=== PATIENT | male | born 1955 | race Caucasian/White ===

== ENCOUNTER → 2020-03-04 08:31 | Outpatient (CLI) | payer OTHER, SELFPAY ==
--- NOTE | ~2020-03-04 | CT_ITS ---
EXAMINATION: CT pelvis wo con DATE: 03/04/2020 08:47 INDICATION: Left groin pain, history of bilateral laparoscopic inguinal hernia repair on 11/14/2018 TECHNIQUE: Computed tomography (CT) of the pelvis was performed without intravenous contrast. The dos e-length product (DLP) was 540.95 mGy-cm. Automated exposure control and iterative reconstruction claire hnique were employed. COMPARISON: 04/05/2016 FINDINGS: Changes of interval hernia repair are noted. Per the operative note, patient had right dire ct and indirect inguinal hernias and a direct left inguinal hernia. There is an indirect left inguina l hernia containing fat. There are no dilated loops of bowel. A moderate volume of pelvic stool is pr esent. There are no pathologically enlarged pelvic lymph nodes. Prostatic calcifications are noted. T here is mild lower lumbar spondylosis. IMPRESSION: 1. Indirect left inguinal hernia containing fat. Interval repair of the previously described inguinal hernias. Reviewed, dictated and finalized at location B. IMPRESSION: 1. Indirect left inguinal hernia containing fat. Interval repair of the previou sly described inguinal hernias.
== END ==
PROVIDERS: Visit Provider Surgery
DX: K40.90 Unilateral inguinal hernia, without obstruction or gangrene, not specified as recurrent (principal)
CPT/HCPCS: 72192

== ENCOUNTER 2020-04-22 14:18 | Outpatient (CLI) | payer OTHER, SELFPAY | END 2020-04-22 14:19 | disposition home or self-care (01) | LOC: ANHSURGERY 14:20 | PROVIDERS: Visit Provider Surgery | DX: Z01.818 Encounter for other preprocedural examination (principal); K40.91 Unilateral inguinal hernia, without obstruction or gangrene, recurrent | CPT/HCPCS: 36415; 86850; 86900; 86901 ==

== ENCOUNTER 2020-04-27 00:11 | Outpatient (CLI) | payer OTHER, SELFPAY ==
[2020-04-27 19:58] LABS: SARS-CoV-2 RNA PCR Negative
== END 2020-04-27 00:12 | disposition home or self-care (01) ==
LOC: ANHCOVIDDT 00:12
PROVIDERS: Visit Provider Surgery
DX: Z01.812 Encounter for preprocedural laboratory examination (principal); Z20.828 Contact with and (suspected) exposure to other viral communicable diseases
CPT/HCPCS: 87635; C9803; U0003

== ENCOUNTER 2020-04-29 02:09 | Day surgery (SDC) | payer OTHER, SELFPAY ==
[2020-04-20 13:34] VITALS: BMI 28.9
--- NOTE | 2020-04-28 16:10 | WPDANESEPPF ---
Anes - Initial Pre Proc Eval Procedure: Operation Date: 04/29/20 09:45 Proposed Procedures p Laparoscopic Recurrent Left Inguinal Hernia Repair with Mesh, Davinci Assisted - Prieto Cadet DO Date/Time: 04/28/20 16:10 Surgeon: Prieto Cadet DO Pre Op Diagnosis: recurrent left inguinal hernia Patient Data Age: 64 Gender: M Height: 1.73 m Weight: 86.25 kg Allergies Allergy/AdvReac Type Severity Reaction Status Date / Time No Known Allergies Allergy Verified 04/20/20 13:10 Home Medications Medication Instructions Recorded Confirmed Type No Home Medications 02/13/20 04/20/20 History Patient hx anesthesia problems: none Family hx anesthesia problems: none PMFSH Past Medical History Medical History DVT (deep venous thrombosis) Overweight (BMI 25.0-29.9) Surgical History Surgical History History of colonoscopy 2003 History of inguinal hernia repair, bilateral 11/14/18 History of removal of calculus of renal pelvis through percutaneous nephrostomy 2016 Family History Family History Mother Hypertension, Onset Age: 40 Stomach cancer Lung cancer Father Lung cancer Social History Social History Smoking status: Never smoker Alcohol intake: never Living arrangements: with family Spiritual care concerns: No Anes - Eval Final PreProcedure Day of Procedure 04/28/20 16:10 Patient weight: overweight Heart: regular rate and rhythm Lungs: clear to auscultation and normal air movement Airway: Mallampati scale class II Neurological: alert and oriented Last oral intake: >/= 8 hours ASA classification: II Emergent: no Anesthetic plan: proceed Anesthesia type and monitoring: general ETT Informed Consent: The patient's anesthetic plan and its attendant risks and benefits were discussed with the patient/family/POA. Questions were solicited and answers provided to the satisfaction of the patient/family/POA.
[2020-04-29] VITALS (12 sets, daily range): BP systolic 106–140; BP diastolic 50–81; PULSE 52–69; RESP 10–16; TEMP 36.1–36.4; O2SAT 91–100
--- NOTE | 2020-04-29 07:23 | PM.IMHP ---
H&P: HPI History of Present Illness Date/Time: 04/29/20 07:23 Chief complaint: recurrent left inguinal hernia Narrative: Efrain Goldberg is a 64 year old male who presents with a recurrent left inguinal hernia. He was having left groin pain with activity. He previously had a lap bilateral inguinal hernia repair with mesh. CT was done and showed evidence of recurrent left inguinal hernia. Review of Systems Review of Systems: All systems reviewed & are unremarkable except as noted in HPI and below Constitutional: Constitutional: Denies chills, Denies fever(s), Denies headache(s) and Denies weight loss Eyes: Eyes: Denies change in vision ENT: Denies dizziness, Denies headache(s), Denies neck mass and Denies throat swelling Cardiovascular: Cardiovascular: Denies chest pain, Denies lightheadedness and Denies dyspnea Respiratory: Respiratory: Denies cough, Denies dyspnea and Denies wheezing Gastrointestinal: Gastrointestinal: Denies abdominal pain, Denies change in bowel habits, Denies nausea and Denies vomiting Genitourinary: Genitourinary: Denies hematuria and Denies dysuria Musculoskeletal: Musculoskeletal: Reports as per HPI Integumentary/Breasts: Skin/Breast: Reports as per HPI Neurologic: Denies dizziness and Denies headache(s) Allergic/Immunologic: Allergic/Immunologic: Denies throat swelling and Denies wheezing PMFSH Past Medical History Medical History DVT (deep venous thrombosis) Overweight (BMI 25.0-29.9) Surgical History Surgical History History of colonoscopy 2003 History of inguinal hernia repair, bilateral 11/14/18 History of removal of calculus of renal pelvis through percutaneous nephrostomy 2016 Family History Family History Mother Hypertension, Onset Age: 40 Stomach cancer Lung cancer Father Lung cancer Social History Social History Smoking status: Never smoker Alcohol intake: never Living arrangements: with family Spiritual care concerns: No Meds Home Medications and Allergies Home Medications Medication Instructions Recorded Confirmed Type No Home Medications 02/13/20 04/20/20 History Allergies Allergy/AdvReac Type Severity Reaction Status Date / Time No Known Allergies Allergy Verified 04/20/20 13:10 Exam Const: General: no acute distress and alert Orientation/consciousness: patient oriented x3 HENMT: Head: normocephalic and atraumatic Ears: hearing grossly normal bilaterally General nose exam: Normal nares present Mouth: Yes Normal oral and palatal mucosa present Eyes: Periorbital: periorbital findings normal Sclera: sclerae normal EOM: EOMs intact bilaterally Neck: Neck: normal visual inspection, no lymphadenopathy and trachea midline Chest: Chest palpation & inspection: normal inspection of the chest Resp: Effort & Inspection: normal respiratory effort Auscultation: clear to auscultation bilaterally Cardio: Jugular venous distension: no JVD Rate: regular rate Rhythm: regular rhythm Heart sounds: S1 normal heart sound present and S2 normal heart sound present Peripheral pulses: Peripheral pulses 2+ throughout GI: Inspection: normal to inspection GI Palp: Yes Soft to palpation, No Tenderness to palpation present (GI), No Guarding due to palpation present (GI) and No Rebound tenderness present Percussion: Yes normal to percussion Auscultation: normal bowel sounds : General: Yes no CVA tenderness Scrotum: inguinal hernia on the left Back/Spine/Pelvis: Back: no CVA tenderness Neuro: General: patient oriented x3, no focal motor deficits and CN's II-XI intact bilaterally Cognition (Neuro): normal cognition Speech: normal speech Motor exam (neuro): 5/5 motor strength present throughout Extre
[2020-04-29] MEDS: LACTATED RINGERS 1,000 ML 30 ML IV CONT ×2 (08:30→11:58)
[2020-04-29] MEDS: ACETAMINOPHEN 500 MG TABLET 1000 MG PO (08:31)
[2020-04-29] MEDS: KETOROLAC 15 MG/ML VIAL (*BKC) IV PUSH (08:31)
[2020-04-29] MEDS: HEPARIN SODIUM 5,000 UNITS/ML VIAL 5000 UNITS SUB-Q (08:31)
--- NOTE | 2020-04-29 08:32 | WPDHPUPDATE1 ---
History and Physical Update Update Date/Time: 04/29/20 08:32 History and Physical has been reviewed, including an updated exam of the patient. There are NO changes in the patient's condition. Risks, benefits, and alternatives have been discussed and questions answered. Patient agrees to proceed with procedure.
[2020-04-29] MEDS: ceFAZolin 2 GM/D5W 50 ML 2 GM/50 ML BAG IVPB (09:08)
[2020-04-29] MEDS: BUPIVACAINE/EPINEPHRINE 0.25% 50 ML VIAL INFILTRATE (09:49)
--- NOTE | 2020-04-29 11:44 | PM.PROC ---
Procedure Note - Detailed Date of procedure: 04/29/20 Pre-op diagnosis: recurrent left inguinal hernia Post-op diagnosis: same (Recurrent indirect LIH) Procedure performed: Laparoscopic recurrent left inguinal hernia repair with Progrip mesh, da Chet assisted Description of procedure: Procedure as well as risks, benefits, and alternatives were discussed with the patient. Written consent was obtained and placed in chart prior to procedure. Patient was brought back to surgical suite. He was placed supine on operating table. Time-out was done to confirm patient and procedure. He was then intubated by Anesthesia Department. His abdomen was prepped and draped in sterile fashion using chlorhexidine prep. 0.5% bupivacaine with epinephrine was infiltrated at each location for incision. An 8 mm incision was made in the left lateral abdomen, and a 5 mm Optiview trocar was advanced through the abdominal layers under direct visualization. Once inside the abdominal cavity, carbon dioxide insufflation was used to create a pneumoperitoneum. A camera was inserted and the abdominal cavity was inspected. The patient was placed in slight Trendelenburg position. An 8 millimeter incision was made on the right lateral abdomen and an 8 millimeter trocar was inserted under direct visualization. Another 8 millimeter incision was made just superior to the umbilicus and an 8 millimeter trocar was inserted under direct visualization. The 5 mm port was then removed and this was replaced with another 8 mm robotic port. The robotic arms were brought up to the patient's bedside and secured to the ports. The camera and instruments were inserted. I then moved over to the robotic console and took control of the camera and instruments. After careful inspection of the abdominal cavity, I began scoring the peritoneum along the left lower quadrant using scissors with electrocautery. The preperitoneal plane was entered and this was carefully dissected caudally along the inferior epigastric vessels. Careful dissection with scissors with electrocautery and blunt dissection was used to continue this dissection. I dissected far enough laterally to allow for mesh placement, and also dissected medially to identify the pubic arch and Kannan's ligament. The hernia sac was identified and carefully dissected posteriorly. The cord contents were also identified and the peritoneum was carefully dissected far enough posteriorly to allow for mesh placement. Once an adequate pocket was created, I then placed the mesh within the preperitoneal pocket and carefully unfolded it. The mesh was centered on the hernia defect with adequate overlap circumferentially. The inferior edge of the mesh was inspected to ensure that it was far enough away from the peritoneal edge. The mesh appeared in proper position overlying the entire myopectineal orifice. The peritoneum was then closed over the mesh using a 3-0 V-lock running absorbable suture. The robotic instruments were removed. The robotic arms were disengaged from the ports and moved away from the bedside. The patient was flattened out in bed, the ports were removed under direct visualization, and the pneumoperitoneum was released. The skin of the incisions was approximated using 4-0 Monocryl subcuticular suture, and Exofin glue was applied on top. The patient was awakened from anesthesia, extubated, and transferred to recovery. Implants: Progrip Mesh 10cm x 15cm Anesthesia: GETA and local (0.5% bupivicaine with epi) Surgeon: Prieto Cadet DO Estimated blood loss (mL): 50 Drains: No Packing: No Pathology: none sent Complications: No immediate complications Condition: stable Disposition: same day Findings: This is a 64-year-old man who presented with a recurrent left inguinal hernia. He had previously undergone laparoscopic bilateral inguinal hernia repair with mesh, da Chet assisted on 11/14/2018. He had done well initially postoperatively, but
--- NOTE | 2020-04-29 12:57 | SUR.PHASEI ---
O2 removed at 1256.
== END 2020-04-29 14:20 | disposition home or self-care (01) ==
PROVIDERS: Visit Provider Surgery
PROC: 8E0Y4CZ Robotic Assisted Procedure of Lower Extremity, Percutaneous Endoscopic Approach (ICD-10-PCS; CPT 49650; principal; 2020-04-29 09:45)
DX: K40.91 Unilateral inguinal hernia, without obstruction or gangrene, recurrent (principal)
CPT/HCPCS: 49651; S2900; A9270; C1781; J0690; J1170; J1644; J1885; J2250; J2370; J2405; J2704; J2710; J3010; J7030; J7120

== ENCOUNTER 2020-05-14 14:30 | Outpatient (CLI) | payer OTHER, SELFPAY ==
[2020-05-14 15:22] LABS: Hematocrit 45.3 % (42.0-52.0); Hemoglobin 15.1 g/dL (14.0-18.0); Mean Corpuscular HGB Conc 33.3 g/dl (32-36); Mean Corpuscular Hemoglobin 30.4 pg (26-34); Mean Corpuscular Volume 91.3 fl (80-100); Mean Platelet Volume 9.2 fl (7.4-10.4); Platelet Count Result 327 k/mm3 (150-375); Red Blood Count 4.96 M/mm3 (4.6-6.20); Red Cell Distribution Width 11.9 % (11.5-14.5); White Blood Count 7.5 K/mm3 (4.5-10.0)
== END 2020-05-14 14:31 | disposition home or self-care (01) ==
PROVIDERS: PCP Surgery; Visit Provider Surgery
DX: R53.83 Other fatigue (principal)
CPT/HCPCS: 36415; 85027

== ENCOUNTER → 2021-02-15 03:29 | Outpatient (CLI) | payer OTHER, SELFPAY ==
[2021-02-16 01:23] LABS: SARS-CoV-2 RNA PCR Negative
== END ==
PROVIDERS: Visit Provider Internal Medicine Gastroenterology
DX: Z01.812 Encounter for preprocedural laboratory examination (principal); Z20.822 Contact with and (suspected) exposure to COVID-19
CPT/HCPCS: C9803; U0003; U0005

== ENCOUNTER 2021-02-18 01:59 | Day surgery (SDC) | payer OTHER, SELFPAY ==
[2021-02-09 12:40] VITALS: BMI 26.8
[2021-02-18 06:42] VITALS: BP 129/63; PULSE 53; RESP 16; TEMP 36.4; O2SAT 96; BMI 25.9
[2021-02-18] MEDS: LACTATED RINGERS 1,000 ML 150 ML IV CONT (06:57)
--- NOTE | 2021-02-18 07:23 | WPDGICN ---
Assessment and Plan Assessment and plan (1) Encounter for screening colonoscopy: Code(s): Z12.11 - Encounter for screening for malignant neoplasm of colon Status: Acute Assessment and Plan: Patient presents for screening colonoscopy is been more than 10 years since last exam. Further recommendations will be given after endoscopy. (2) Dysphagia: Code(s): R13.10 - Dysphagia, unspecified Status: Acute Assessment and Plan: Patient has difficulty swallowing large pieces of food suspicious for esophageal narrowing. Plan is for EGD to assess he may need dilatation. Further recommendations will be given after endoscopy. GI Consult Note Consult date/time: 02/18/21 07:23 HPI: Efrain Goldberg is a 65 year old male presents for GI endoscopy. For the last several months has had difficulty swallowing. Typically larger pieces of food such as chicken will catch in the area near the throat. He has difficulty swallowing these. Denies any pain. He has had no heartburn. He has no bleeding no weight loss. He states that liquids will pass relatively easily unless initially swallow solid food. Patient reports his last colonoscopy was 2006. He may have had colon polyps at that time. He states that his current weight appetite bowel movements are normal. He denies abdominal pain. He has had no bleeding. Family history is noncontributory. Review of Systems Review of Systems: All systems reviewed & are unremarkable except as noted in HPI and below PMFSH Past Medical History Medical History (Updated 02/18/21 @ 07:25 by Mansoor López MD) DVT (deep venous thrombosis) Encounter for screening colonoscopy Overweight (BMI 25.0-29.9) Surgical History Surgical History H/O inguinal hernia repair 04/27/20: laparoscopic recurrent LIH repair with mesh, davinci assisted. History of colonoscopy 2003 History of inguinal hernia repair, bilateral 11/14/18 History of removal of calculus of renal pelvis through percutaneous nephrostomy 2016 Family History Family History Mother Hypertension, Onset Age: 40 Stomach cancer Lung cancer Father Lung cancer Social History Social History Smoking status: Never smoker Alcohol intake: never Substance use: never Substance use type: does not use Living arrangements: with family Spiritual care concerns: No Meds Home Medications and Allergies Home Medications Medication Instructions Recorded Confirmed Type doxycycline hyclate 100 mg tablet 100 mg PO DAILY PRN 12/31/20 02/18/21 History metronidazole 0.75 % topical cream 1 applic TOPICAL DAILY 12/31/20 02/18/21 History oxybutynin chloride 10 mg 10 mg PO DAILY 01/18/21 02/18/21 History tablet,extended release 24 hr Allergies Allergy/AdvReac Type Severity Reaction Status Date / Time No Known Allergies Allergy Verified 02/18/21 06:41 Vital Signs Vital Signs - 24 hr 02/18/21 06:42 Temperature 97.5 F L Pulse Rate 53 L Respiratory Rate 16 Blood Pressure 129/63 Pulse Oximetry 96 Exam Narrative: Physical exam reveals patient be alert. Vital signs stable. HEENT exam is unremarkable. Patient is anicteric. Lungs are clear to auscultation and percussion. Heart is without murmur or extra sounds. Abdominal exam bowel sounds are present soft nontender with no organomegaly. Digital external rectal exam is normal.
--- NOTE | 2021-02-18 07:59 | P.PNAN_ITS ---
Anes - Initial Pre Proc Eval Procedure: Operation Date: 02/18/21 08:00 Proposed Procedures p Esophagogastroduodenoscopy & Screening Colonoscopy - Mansoor López MD Date/Time: 02/18/21 07:59 Surgeon: aMnsoor López MD Pre Op Diagnosis: dysphagia Patient Data Age: 65 Gender: M Height: 1.73 m Weight: 77.2 kg Last Vital Signs Temp 97.5 F L 02/18/21 06:42 Pulse 53 L 02/18/21 06:42 Resp 16 02/18/21 06:42 BP 129/63 02/18/21 06:42 Pulse Ox 96 02/18/21 06:42 Allergies Allergy/AdvReac Type Severity Reaction Status Date / Time No Known Allergies Allergy Verified 02/18/21 06:41 Home Medications Medication Instructions Recorded Confirmed Type doxycycline hyclate 100 mg tablet 100 mg PO DAILY PRN 12/31/20 02/18/21 History metronidazole 0.75 % topical cream 1 applic TOPICAL DAILY 12/31/20 02/18/21 His tory oxybutynin chloride 10 mg 10 mg PO DAILY 01/18/21 02/18/21 History tablet,extended release 24 hr Patient hx anesthesia problems: none Family hx anesthesia problems: none PMFSH Past Medical History Medical History (Updated 02/18/21 @ 07:25 by Mansoor López MD) DVT (deep venous thrombosis) Encounter for screening colonoscopy Overweight (BMI 25.0-29.9) Surgical History Surgical History H/O inguinal hernia repair 04/27/20: laparoscopic recurrent LIH repair with mesh, davinci assisted. History of colonoscopy 2003 History of inguinal hernia repair, bilateral 11/14/18 History of removal of calculus of renal pelvis through percutaneous nephrostomy 2016 Family History Family History Mother Hypertension, Onset Age: 40 Stomach cancer Lung cancer Father Lung cancer Social History Social History Smoking status: Never smoker Alcohol intake: never Substance use: never Substance use type: does not use Living arrangements: with family Spiritual care concerns: No Anes - Eval Final PreProcedure Day of Procedure 02/18/21 07:59 Patient weight: normal Heart: regular rate and rhythm Lungs: clear to auscultation Airway: Mallampati scale class II Neurological: alert and oriented Last oral intake: >/= 8 hours ASA classification: II Emergent: no Anesthetic plan: proceed Anesthesia type and monitoring: general GIVS and standard monitoring Informed Consent: The patient's anesthetic plan and its attendant risks and benefits were discussed with the patient/family/POA. Questions were solicited and answers provided to the satisfaction of the patient/family/POA.
[2021-02-18 08:47] VITALS: BP 127/79; PULSE 52; RESP 15; O2SAT 99
[2021-02-18 08:57] VITALS: BP 124/85; PULSE 51; RESP 16; O2SAT 99
[2021-02-18 09:07] VITALS: BP 136/84; PULSE 54; RESP 18; O2SAT 97
== END 2021-02-18 09:16 | disposition home or self-care (01) ==
PROVIDERS: Visit Provider Internal Medicine Gastroenterology
PROC: 0DJ08ZZ Inspection of Upper Intestinal Tract, Via Natural or Artificial Opening Endoscopic (ICD-10-PCS; CPT 43235; principal; 2021-02-18 08:00)
DX: Z12.11 Encounter for screening for malignant neoplasm of colon (principal); R13.10 Dysphagia, unspecified; D12.8 Benign neoplasm of rectum; K22.5 Diverticulum of esophagus, acquired; K57.30 Diverticulosis of large intestine without perforation or abscess without bleeding; Z86.718 Personal history of other venous thrombosis and embolism; Z87.442 Personal history of urinary calculi
CPT/HCPCS: 45385; 43235; 88305; C9803; J2704; J7120; U0003; U0005

== ENCOUNTER 2021-02-22 08:11 | Outpatient (CLI) | payer OTHER, SELFPAY ==
--- NOTE | ~2021-02-22 | XR_ITS ---
EXAMINATION: XR barium swallow DATE: 02/22/2021 08:54 INDICATION: Dysphagia TECHNIQUE: The patient drank thick barium, gas-producing crystals, and thin barium. Fluoroscopy of th e hypopharynx and esophagus was performed. Fluoroscopy exposure time was 1.5 minutes. The DAP for thi s procedure was 6.07 Gycm2. COMPARISON: None. FINDINGS: There is a moderate-sized midline diverticulum of the dorsal esophagus at the level of the C5 vertebral body. When filled with contrast, this causes narrowing of the esophagus in the AP dimens ion. No fixed stricture of the esophagus is identified. Esophageal motility is normal. There is a mod erate-sized sliding hiatal hernia. Gastroesophageal reflux was elicited with provocative maneuvers. IMPRESSION: 1. Moderate-sized Zenker's diverticulum. 2. Moderate-sized sliding hiatal hernia with gastroesophageal reflux. Reviewed, dictated and finalized at location A.
== END 2021-02-22 08:12 | disposition home or self-care (01) ==
LOC: ANHIMG 08:13
PROVIDERS: Visit Provider Internal Medicine Gastroenterology
DX: K22.5 Diverticulum of esophagus, acquired (principal); K44.9 Diaphragmatic hernia without obstruction or gangrene
CPT/HCPCS: 74220

== ENCOUNTER 2022-08-15 12:25 | Emergency (ER) | payer MEDICARE, SELFPAY ==
[2022-08-15 12:30] VITALS: BP 129/86; PULSE 58; RESP 16; TEMP 36.8; O2SAT 98
--- NOTE | 2022-08-15 12:40 | ED.EAR ---
HPI - Ear Problem General Chief complaint: Ear Stated complaint: lt ear pain/drainage, wound on lt side of face Time Seen by Provider: 08/15/22 13:02 Source: patient and RN notes reviewed Mode of arrival: ambulatory Limitations: no limitations History of Present Illness HPI Narrative: 66-year-old male presents with concern for left ear pain, feeling of fullness. He also reports painful area in his rush the left side of his face. He reports using a rush balm and then the scab appeared in his rush. He reports it is tender, denies drainage. Also reports left ear pain drainage. Denies sinus congestion pressure, drainage. He denies fever, aches, chills, sweats. MD Complaint: ear pain Related Data Allergies Allergy/AdvReac Type Severity Reaction Status Date / Time No Known Allergies Allergy Verified 08/15/22 12:38 Review of Systems Review of Systems: CONSTITUTIONAL: Denies malaise, chills, sweats, or fever. EYES: Denies visual changes, redness, or discharge. ENT: Denies rhinorrhea, congestion, sinus pain, and sore throat. Reports left ear pain CARDIOVASCULAR: Denies chest pain, palpitations, or edema. RESPIRATORY: Denies cough. Denies dyspnea. GASTROINTESTINAL: Denies abdominal pain, nausea, vomiting, diarrhea SKIN: Reports a scab next to the left side of his chin his rush MUSCULOSKELETAL: Denies myalgia. NEUROLOGIC: Denies headache. All systems reviewed & are unremarkable except as noted in HPI and below PMFSH Past Medical History Medical History DVT (deep venous thrombosis) Encounter for screening colonoscopy Overweight (BMI 25.0-29.9) Surgical History Surgical History H/O inguinal hernia repair 04/27/20: laparoscopic recurrent LIH repair with mesh, davinci assisted. History of colonoscopy 2003 History of inguinal hernia repair, bilateral 11/14/18 History of removal of calculus of renal pelvis through percutaneous nephrostomy 2016 Family History Family History Mother Hypertension, Onset Age: 40 Stomach cancer Lung cancer Father Lung cancer Social History Social History Alcohol intake: never Substance use: never Substance use type: does not use Living arrangements: with family Occupation/Education: retired Spiritual care concerns: No Comments At time of signature, agree with nursing past medical, surgical, social and family history. There is no relevant family history pertinent to the presenting complaint Exam Narrative: GENERAL: Well-appearing, well-nourished, and in no acute distress. HEAD: Normocephalic EYES: PERRLA, conjunctivae clear ENT: Nares clear. Mucous membranes moist. TM pearly noriega with dull light reflex bilaterally; left tragal tenderness, EAC erythema with mild edema left outer ear erythematous without pre or postauricular erythema, edema, tenderness. Oropharynx not erythematous without lesions. Tonsils not enlarged and without exudate, no drooling, no hoarseness, no trismus, uvula midline. Dentation grossly normal NECK: Supple. No lymphadenopathy CHEST: Clear to auscultation, breath sounds equal. No wheezing, rhonchi, rales, or stridor. No respiratory distress, speaks in full sentences. HEART: Regular rate and rhythm. No murmur heard. SKIN: Warm, dry, no rash. 1 cm raised scabbed area and rush left of the chin that is slightly tender NEURO: Alert and oriented x3. PSYCH: Normal mood and affect Course Course Emergency Course: Discussed with patient that I do not see a connection between the ear infection and the scab on his chin, however without further imaging I cannot rule that out. Advised he should go to ER if his symptoms worsen, he has any further facial swelling, fever. Patient is aware of diagnosis, understands and agrees to treatment plan. Ant
== END 2022-08-15 13:21 | disposition home or self-care (01) ==
PROVIDERS: Emergency Provider Nurse Practitioner
DX: H60.92 Unspecified otitis externa, left ear (principal); L73.9 Follicular disorder, unspecified; Z86.718 Personal history of other venous thrombosis and embolism
CPT/HCPCS: 99213; G0463

== ENCOUNTER 2023-03-09 15:04 | Emergency (ER) | payer MEDICARE, SELFPAY ==
--- NOTE | ~2023-03-09 | XR_ITS ---
EXAMINATION: XR hand RT min 3V DATE: 03/09/2023 16:04 INDICATION: Right hand pain. TECHNIQUE: 3 views of right hand were obtained. COMPARISON: None. FINDINGS: Bone alignment is normal. There is a nondisplaced fracture of radial sided base of third di stal phalanx. There is moderate osteoarthritis of first carpometacarpal joint and mild osteoarthritis of some the interphalangeal joints. There is soft tissue swelling of the third and fourth digits. No radiopaque foreign body. IMPRESSION: 1. Nondisplaced fracture of radial sided base of third distal phalanx. Reviewed, dictated and finalized at location A.
[2023-03-09 15:11] VITALS: BP 179/115; PULSE 79; RESP 16; TEMP 37; O2SAT 97
[2023-03-09 15:19] VITALS: BP 154/88; PULSE 86; RESP 18; TEMP 36.9; O2SAT 98
--- NOTE | 2023-03-09 15:32 | ED.GENADULT ---
HPI - General Adult General Chief complaint: Wound/Laceration Stated complaint: finger laceration Time Seen by Provider: 03/09/23 15:14 History of Present Illness HPI narrative: Efrain Goldberg is a 67 y/o male who presents after attempting to remove grass from the bottom of his mower while it was running and sustained a significant avulsion/ laceration to the padding of his right 3rd and 4th distal phalanxes. Patient denies any other injuries, unknown last Tdap, oozing blood on arrival to room. Related Data Allergies Allergy/AdvReac Type Severity Reaction Status Date / Time No Known Allergies Allergy Verified 03/09/23 15:28 Review of Systems Review of Systems: CONSTITUTIONAL: Denies fever, chills, or sweats. EYES: Denies visual changes, redness, or discharge. ENT: Denies rhinorrhea, congestion, sore throat, or otalgia. CARDIOVASCULAR: Denies chest pain, palpitations, or edema. RESPIRATORY: Denies cough or dyspnea. GASTROINTESTINAL: Denies abdominal pain, nausea, vomiting, or diarrhea. GENITOURINARY: Denies dysuria or hematuria. SKIN: Denies rash or itching. MUSCULOSKELETAL: Denies back pain, pain to right third and fourth phalanxes NEUROLOGIC: Denies headache, numbness, dizziness, or weakness. PSYCHIATRIC: Denies anxiety or depression. [facility] Past Medical History Medical History DVT (deep venous thrombosis) Encounter for screening colonoscopy Overweight (BMI 25.0-29.9) Surgical History Surgical History H/O inguinal hernia repair 04/27/20: laparoscopic recurrent LIH repair with mesh, davinci assisted. History of colonoscopy 2004 History of inguinal hernia repair, bilateral 11/14/18 History of removal of calculus of renal pelvis through percutaneous nephrostomy 2016 Family History Family History Mother Hypertension, Onset Age: 40 Stomach cancer Lung cancer Father Lung cancer Social History Social History Alcohol intake: never Substance use: never Substance use type: does not use Living arrangements: with family Occupation/Education: retired Spiritual care concerns: No Exam Narrative: GENERAL: Well-appearing, well-nourished, and in no acute distress. HEAD: Normocephalic, atraumatic. EYES: PERRLA and EOMI. ENT: Nares clear, no rhinorrhea or epistaxis. Mucous membranes moist. Oropharynx without tonsillar hypertrophy exudate or other lesions. NECK: Supple. No adenopathy or masses. No carotid bruits or JVD CHEST: Clear to auscultation. No respiratory distress. No wheezes rales or rhonchi HEART: Regular rate and rhythm. No murmur heard. Normal peripheral pulses. ABDOMEN: Soft, nontender, nondistended, normal active bowel sounds. EXTREMITIES: Normal range of motion. No edema. obvious avulsion lacerations to the tip of the third and fourth phalanx with the third more severe. SKIN: Warm, dry, no rash. NEURO: No focal deficits. Alert and oriented x3. PSYCH: Normal mood and affect. Course Vital Signs Vital signs: Vital Signs Temperature 37.0 C 03/09/23 15:11 Pulse Rate 79 03/09/23 15:11 Respiratory Rate 16 03/09/23 15:11 Blood Pressure 179/115 H 03/09/23 15:11 Pulse Oximetry 97 03/09/23 15:11 Oxygen Delivery Room Air 03/09/23 15:11 Temperature 36.9 C 03/09/23 15:19 Pulse Rate 51 L 03/09/23 18:44 Respiratory Rate 18 03/09/23 18:44 Blood Pressure 136/82 03/09/23 18:44 Pulse Oximetry 94 03/09/23 18:44 Oxygen Delivery Room Air 03/09/23 15:19 vitals reviewed by me. Procedures Laceration Laceration 1: Date: 03/09/23 Time: 17:00 Site: hand (Distal right fourth phalanx horse shoe shaped ) Side (If applicable): right Size (cm): 1.5 Description: flap Depth: simple, single
[2023-03-09] MEDS: CYCLOBENZAPRINE HCL 10 MG TABLET PO (16:14)
[2023-03-09] MEDS: HYDROcodone/acetaminophen (*CRX) 5-325 MG TABLET 1 TAB PO (16:14)
[2023-03-09] MEDS: TETANUS,DIPHTHERIA,AC PERTUSSIS ADULT (0.5 ML) BOOSTRIX IM (16:15)
[2023-03-09 16:57] VITALS: BP 128/61; PULSE 94; RESP 18; O2SAT 97
[2023-03-09] MEDS: cefTRIAXone 1 GM VIAL IM (18:15)
[2023-03-09 18:44] VITALS: BP 136/82; PULSE 51; RESP 18; O2SAT 94
== END 2023-03-09 18:47 | disposition home or self-care (01) ==
PROVIDERS: Emergency Provider Nurse Practitioner Family
DX: S61.212A Laceration without foreign body of right middle finger without damage to nail, initial encounter (principal); S61.214A Laceration without foreign body of right ring finger without damage to nail, initial encounter; S62.662A Nondisplaced fracture of distal phalanx of right middle finger, initial encounter for closed fracture; Z23 Encounter for immunization; E66.3 Overweight; Z68.26 Body mass index [BMI] 26.0-26.9, adult; Z86.718 Personal history of other venous thrombosis and embolism; Z87.442 Personal history of urinary calculi; W28.XXXA Contact with powered lawn mower, initial encounter
CPT/HCPCS: 12002; 29130; 73130; 90471; 90715; 96372; 99283; A9270; J0696